=== PATIENT | male | born 1985 | race Caucasian/White ===

== ENCOUNTER 2017-01-05 03:14 | Outpatient (CLI) | payer OTHER, MEDICARE | END 2017-01-05 03:15 | disposition critical access hospital (66) | DX: S99.921A Unspecified injury of right foot, initial encounter (principal); W22.03XA Walked into furniture, initial encounter; Y92.019 Unspecified place in single-family (private) house as the place of occurrence of the external cause | CPT/HCPCS: A0425; A0429 ==

== ENCOUNTER 2017-01-05 03:28 | Emergency (ER) | payer OTHER, MEDICARE ==
[2017-01-05] MEDS ORDERED: KETOROLAC 60 MG/2 ML VIAL IM STA (03:36)
[2017-01-05] MEDS ORDERED: HYDROmorphone 1 MG/ML SYRINGE IM STA (03:36)
[2017-01-05] MEDS ORDERED: KETOROLAC 60 MG/2 ML VIAL ONE (03:41)
[2017-01-05] MEDS ORDERED: HYDROmorphone 1 MG/ML SYRINGE ONE (03:41)
== END 2017-01-05 04:26 | disposition home or self-care (01) ==
DX: S90.31XA Contusion of right foot, initial encounter (principal); W22.03XA Walked into furniture, initial encounter; Y92.019 Unspecified place in single-family (private) house as the place of occurrence of the external cause; F17.200 Nicotine dependence, unspecified, uncomplicated
CPT/HCPCS: 73610; 73630; 96372; 99283; 99284; J1170

== ENCOUNTER 2017-02-15 12:06 | Emergency (ER) | payer MEDICARE, MEDICAID ==
[2017-02-15] MEDS ORDERED: HYDROmorphone 1 MG/ML SYRINGE IVP STA ×2 (14:26→15:27)
[2017-02-15] MEDS ORDERED: SODIUM CHLORIDE 0.9% 1,000 ML IV ONE (14:26)
[2017-02-15] MEDS ORDERED: ONDANSETRON 4 MG/2 ML VIAL IVP STA (14:26)
[2017-02-15] MEDS ORDERED: PANTOPRAZOLE 40 MG VIAL IVP STA (14:27)
--- NOTE | 2017-02-15 14:41 | ED Physician Documentation ---
PD HPI ABD PAIN - Stated complaint Stated Complaint: VOMITING/DIZZY - Chief complaint Chief Complaint: Abd Pain - History obtained from History obtained from: Patient - History of Present Illness Timing - onset: Other (4 days of abdominal cramping that started low and is now in the epigastrium associated with vomiting and diarrhea but no fevers. His significant other has a similar syndrome but milder. No recent travel.) Review of Systems Ten Systems: 10 systems reviewed and negative Constitutional: denies: Fever, Chills GI: reports: Abdominal Pain, Nausea, Vomiting, Diarrhea. denies: Bloody / black stool Musculoskeletal: denies: Neck pain, Back pain Neurologic: reports: Headache (GRADUAL ONSET C/W PRIOR MIGRAINE) PD PAST MEDICAL HISTORY - Past Medical History Past Medical History: Yes Neuro: Headache/migraine Other Past Medical History: SUGGS, trigeminal neuralgia - Past Surgical History Past Surgical History: Yes - Present Medications Home Medications: Ambulatory Orders Medication Instructions Recorded Confirmed Naproxen [Naprosyn] 500 mg ORAL DAILY PRN 04/02/15 02/15/17 Sumatriptan Succinate 100 mg ORAL DAILY PRN 04/02/15 02/15/17 Naproxen Sodium/P-Ephed HCl 1 tab PO DAILY 03/06/16 02/15/17 [Aleve-D Sinus and Cold Caplet] Famotidine [Pepcid] 20 mg PO BID #30 tablet 02/15/17 Ondansetron HCl [Zofran] 4 mg PO Q6H PRN #10 tablet 02/15/17 Promethazine [Phenergan] 25 - 50 mg PO Q6H PRN #15 tab 02/15/17 oxyCODONE [Roxicodone] 5 mg PO Q4-6H PRN #10 tablet 02/15/17 - Allergies Allergies/Adverse Reactions: Allergies Allergy/AdvReac Type Severity Reaction Status Date / Time acetaminophen [From Tylenol] AdvReac Headache Verified 02/15/17 12:20 Penicillins AdvReac Nausea Verified 02/15/17 12:20 - Social History Does the pt smoke?: Yes Smoking Status: Current some day smoker Does the pt drink ETOH?: No Does the pt have substance abuse?: No - Immunizations Immunizations are current?: Yes - POLST Patient has POLST: No PD ED PE NORMAL - Vitals Vital signs reviewed: Yes - General General: Alert and oriented X 3, No acute distress - HEENT HEENT: Pharynx benign - Cardiac Cardiac: RRR, No murmur - Respiratory Respiratory: No respiratory distress, Clear bilaterally - Abdomen Abdomen: Soft, Non tender - Neuro Neuro: Alert and oriented X 3, Normal speech - Psych Psych: Normal mood, Normal affect Results - Vitals Vitals: Vital Signs - 24 hr 02/15/17 02/15/17 02/15/17 12:15 15:03 16:43 Temperature 36.2 C L 36.3 C L Heart Rate 100 88 84 Respiratory 16 20 18 Rate Blood Pressure 123/81 H 106/72 110/70 O2 Saturation 99 99 99 Oxygen O2 Source Room air - Labs Labs: Laboratory Tests 02/15/17 02/15/17 14:46 14:46 WBC 17.7 H RBC 5.55 Hgb 16.9 Hct 49.3 MCV 88.7 MCH 30.4 MCHC 34.3 RDW 12.8 Plt Count 339 MPV 8.6 Neut # 13.7 H Lymph # 3.1 [place] # 0.8 Eos # 0.0 Baso # 0.1 Absolute Nucleated RBC 0.00 Nucleated RBCs 0.0 Sodium 140 Potassium 3.4 L Chloride 105 Carbon Dioxide 22 Anion Gap 13.0 BUN 15 Creatinine 0.9 Estimated GFR (MDRD) 100 Glucose 99 Calcium 10.6 H Total Bilirubin 0.6 AST 22 ALT 32 Alkaline Phosphatase 77 Total Protein 8.9 H Albumin 5.5 Globulin 3.4 Albumin/Globulin Ratio 1.6 Lipase 24 PD MEDICAL DECISION MAKING - ED course ED course: 31-year-old gentleman with a clinical syndrome it sounds like gastroenteritis, probably complicated by narcotic withdrawal, he takes oxycodone 4 times a day and hasn't been able to keep it down since the start of the illness. There is no abdominal tenderness/no right lower quadrant tenderness to be suggestive of appendicitis either on initial evaluation on repeat evaluation. Passed PO challenge without issue. Departure - Departure Disposition: 01 Home, Self Care Clinical Impression: Gastroenteritis Condition: Good Record reviewed to determine appropriate education?: Yes Instructions: ED Gastroenteritis Viral Prescriptions: Famotidine [Pepcid] 20 mg PO BID #30 tablet Promethazine [Phenergan] 25 - 50 mg PO Q6H PRN #15 tab PRN Reason: Nausea / Vomiting oxyCODONE [Roxicodone] 5 mg PO Q4-6H PRN #10 tablet PRN Reason: Pain Ondansetron HCl [Zofran] 4 mg PO Q6H PRN #10 tablet PRN Reason: Nausea / Vomiting Comments: Return if worse or if new symptoms develop, especially fever or if pain moves to the bottom of the abdomen again, or if not better in the next 12-24 hours. Discharge Date/Time: 02/15/17 16:44
[2017-02-15] MEDS ORDERED: ONDANSETRON 4 MG/2 ML VIAL ONE (14:49)
[2017-02-15] MEDS ORDERED: PANTOPRAZOLE 40 MG VIAL ONE (14:49)
[2017-02-15] MEDS ORDERED: HYDROmorphone 1 MG/ML SYRINGE ONE ×2 (14:49→15:28)
[2017-02-15 14:58] LABS: BASOPHILS # (AUTO) 0.1 10^3/uL (0.0-0.1); BASOPHILS % (AUTO) 0.6 %; EOSINOPHILS % (AUTO) 0.2 %; HCT - HEMATOCRIT 49.3 % (42.0-52.0); HGB - HEMOGLOBIN 16.9 g/dL (14.0-18.0); LYMPHOCYTES # (AUTO) 3.1 10^3/uL (1.5-3.5); LYMPHOCYTES % (AUTO) 17.5 %; MEAN CORPUSCULAR HEMOGLOBIN 30.4 pg (27.0-31.0); MEAN CORPUSCULAR HGB CONC 34.3 g/dL (32.0-36.0); MEAN CORPUSCULAR VOLUME 88.7 fL (80.0-94.0); MEAN PLATELET VOLUME 8.6 fL (7.4-11.4); MONOCYTES # (AUTO) 0.8 10^3/uL (0.0-1.0); MONOCYTES % (AUTO) 4.7 %; NEUTROPHILS # (AUTO) 13.7 10^3/uL (1.5-6.6); RED BLOOD COUNT 5.55 10^6/uL (4.70-6.10); RED CELL DISTRIBUTION WIDTH 12.8 % (12.0-15.0); UNCORRECTED WHITE BLOOD COUNT 17.7 x10^3/uL; WHITE BLOOD COUNT 17.7 x10^3/uL (4.8-10.8)
[2017-02-15 15:05] LABS: ALBUMIN/GLOBULIN RATIO 1.6 (1.0-2.2); BILIRUBIN,TOTAL 0.6 mg/dL (0.2-1.0); CALCIUM 10.6 mg/dL (8.5-10.3); CREATININE 0.9 mg/dL (0.6-1.2); POTASSIUM 3.4 mmol/L (3.5-5.0); TOTAL PROTEIN 8.9 g/dL (6.7-8.2)
[2017-02-15 16:44] VITALS: BP 110/70
== END 2017-02-15 16:44 | disposition home or self-care (01) ==
LOC: ED 12:06
DX: K52.9 Noninfective gastroenteritis and colitis, unspecified (principal); F17.200 Nicotine dependence, unspecified, uncomplicated
CPT/HCPCS: 36415; 80053; 83690; 85025; 96374; 96375; 99283; 99284; J1170

== ENCOUNTER 2017-06-05 18:21 | Outpatient (CLI) | payer MEDICARE | END 2017-06-05 18:22 | disposition critical access hospital (66) | LOC: EMS 18:21 | PROVIDERS: ATTEND Surgery | DX: R10.9 Unspecified abdominal pain (principal); R53.1 Weakness; R11.2 Nausea with vomiting, unspecified | CPT/HCPCS: A0425; A0429 ==

== ENCOUNTER 2017-06-05 18:41 | Emergency (ER) | payer MEDICARE ==
[2017-06-05] MEDS ORDERED: SODIUM CHLORIDE 0.9% 1,000 ML IV ONE ×2 (18:56)
[2017-06-05 19:12] LABS: BASOPHILS # (AUTO) 0.2 10^3/uL (0.0-0.1); BASOPHILS % (AUTO) 1.1 %; EOSINOPHILS # (AUTO) 0.3 10^3/uL (0.0-0.7); HCT - HEMATOCRIT 47.5 % (42.0-52.0); HGB - HEMOGLOBIN 16.2 g/dL (14.0-18.0); LYMPHOCYTES # (AUTO) 4.5 10^3/uL (1.5-3.5); LYMPHOCYTES % (AUTO) 32.3 %; MEAN CORPUSCULAR HEMOGLOBIN 30.5 pg (27.0-31.0); MEAN CORPUSCULAR HGB CONC 34.2 g/dL (32.0-36.0); MEAN CORPUSCULAR VOLUME 89.1 fL (80.0-94.0); MEAN PLATELET VOLUME 7.8 fL (7.4-11.4); MONOCYTES # (AUTO) 0.8 10^3/uL (0.0-1.0); NEUTROPHILS # (AUTO) 8.2 10^3/uL (1.5-6.6); NEUTROPHILS % (AUTO) 58.6 %; NUCLEATED RED BLOOD CELLS AUTO 0.1 /100WBC; RED BLOOD COUNT 5.32 10^6/uL (4.70-6.10); RED CELL DISTRIBUTION WIDTH 12.7 % (12.0-15.0)
[2017-06-05 19:25] LABS: ALBUMIN/GLOBULIN RATIO 1.4 (1.0-2.2); BILIRUBIN,TOTAL 0.5 mg/dL (0.2-1.0); CALCIUM 9.8 mg/dL (8.5-10.3); CREATININE 0.7 mg/dL (0.6-1.2); POTASSIUM 3.2 mmol/L (3.5-5.0)
[2017-06-05] MEDS ORDERED: HYDROmorphone 1 MG/ML SYRINGE IVP STA (19:38)
[2017-06-05] MEDS ORDERED: ONDANSETRON 4 MG/2 ML VIAL IVP STA (19:38)
--- NOTE | 2017-06-05 19:42 | ED Physician Documentation ---
PD HPI ABD PAIN - Stated complaint Stated Complaint: ABD PX - Chief complaint Chief Complaint: Abd Pain - History obtained from History obtained from: Patient - History of Present Illness Timing - onset: How many days ago (4) Timing - duration: Days (4) Timing - details: Gradual onset Pain level max: 8 Pain level now: 8 Quality: Cramping, Aching Location: Epigastric, LUQ, LLQ Radiation: Other (Nonradiating) Improved by: Other (Nothing) Worsened by: Other ("Everything") Associated symptoms: Nausea, Vomiting, Diarrhea. No: Fever, Hematemesis, Constipation, Melena, Hematochezia Similar symptoms before: Diagnosis (States that this happens to him every few months. Since last for 3-4 days at a time. Has been unable to keep his medications down including his narcotics which he states he is nearly out of.) - Additional information Additional information: Patient also has a history of pots syndrome, states that from the vomiting he became lightheaded and dizzy today, passed out and struck his head on a car in his driveway. Has had no vomiting. Has been acting appropriately since the event. No seizure. Was seen by a neighbor. States has passed out several times in the past. Review of Systems Constitutional: denies: Fever, Chills Nose: denies: Rhinorrhea / runny nose, Congestion Skin: denies: Rash Musculoskeletal: denies: Neck pain, Back pain Neurologic: denies: Focal weakness, Numbness, Confused, Altered mental status PD PAST MEDICAL HISTORY - Past Medical History Past Medical History: Yes Neuro: Headache/migraine Other Past Medical History: positional orthostatic hypotension syndrome - Past Surgical History Past Surgical History: Yes - Present Medications Home Medications: Ambulatory Orders Medication Instructions Recorded Confirmed Naproxen [Naprosyn] 500 mg ORAL DAILY PRN 04/02/15 02/15/17 Sumatriptan Succinate 100 mg ORAL DAILY PRN 04/02/15 02/15/17 Naproxen Sodium/P-Ephed HCl 1 tab PO DAILY 03/06/16 02/15/17 [Aleve-D Sinus and Cold Caplet] Famotidine [Pepcid] 20 mg PO BID #30 tablet 02/15/17 Ondansetron HCl [Zofran] 4 mg PO Q6H PRN #10 tablet 02/15/17 oxyCODONE [Roxicodone] 5 mg PO Q4-6H PRN #10 tablet 02/15/17 Ondansetron Odt [Zofran] 4 mg TL Q6H PRN #10 tablet 06/05/17 oxyCODONE [Roxicodone] 5 mg PO Q4-6H PRN #10 tablet 06/05/17 - Allergies Allergies/Adverse Reactions: Allergies Allergy/AdvReac Type Severity Reaction Status Date / Time acetaminophen [From Tylenol] AdvReac Headache Verified 06/05/17 18:47 Penicillins AdvReac Nausea Verified 06/05/17 18:47 - Social History Does the pt smoke?: Yes Smoking Status: Current some day smoker Does the pt drink ETOH?: No Does the pt have substance abuse?: No - Immunizations Immunizations are current?: Yes - POLST Patient has POLST: No PD ED PE NORMAL - Vitals Vital signs reviewed: Yes - General General: Alert and oriented X 3, No acute distress, Well developed/nourished - HEENT HEENT: PERRL, Moist mucous membranes - Neck Neck: Supple, no meningeal sign - Cardiac Cardiac: RRR - Respiratory Respiratory: No respiratory distress, Clear bilaterally - Abdomen Abdomen: Soft, Non distended, Other (Mild diffuse tenderness without peritoneal signs) - Back Back: No spinal TTP - Derm Derm: Warm and dry, No rash - Extremities Extremities: No calf tenderness / cord - Neuro Neuro: Alert and oriented X 3 - Psych Psych: Normal mood, Normal affect Results - Vitals Vitals: Vital Signs - 24 hr 06/05/17 06/05/17 06/05/17 18:43 19:37 20:16 Temperature 37.4 C 36.8 C Heart Rate 104 H 95 85 Respiratory 16 18 14 Rate Blood Pressure 135/84 H 133/85 H 110/68 O2 Saturation 100 100 99 06/05/17 06/05/17 06/05/17 20:55 21:52 23:15 Temperature Heart Rate 77 79 82 Respiratory 17 20 15 Rate Blood Pressure 123/79 123/64 114/72 O2 Saturation 100 99 99 Oxygen O2 Source Room air - EKG (time done) 1924 Rate: Rate (enter#) (95) Rhythm: NSR [place]: Normal Intervals: Normal [place] QRS: Normal Ischemia: Normal ST segments - Labs Labs: Laboratory Tests 06/05/17 06/05/1717 19:06 19:06 22:32 WBC 14.0 H RBC 5.32 Hgb 16.2 Hct 47.5 MCV 89.1 MCH 30.5 MCHC 34.2 RDW 12.7 Plt Count 365 MPV 7.8 Neut # 8.2 H Lymph # 4.5 H [place] # 0.8 Eos # 0.3 Baso # 0.2 H Absolute Nucleated RBC 0.01 Nucleated RBCs 0.1 Sodium 139 Potassium 3.2 L Chloride 106 Carbon Dioxide 23 Anion Gap 10.0 BUN 12 Creatinine 0.7 Estimated GFR (MDRD) 132 Glucose 90 Calcium 9.8 Total Bilirubin 0.5 AST 28 ALT 19 Alkaline Phosphatase 89 Total Protein 8.0 Albumin 4.6 Globulin 3.4 Albumin/Globulin Ratio 1.4 Lipase 25 Urine Color YELLOW Urine Clarity CLEAR Urine pH 7.5 Ur Specific [place] 1.015 Urine Protein NEGATIVE Urine Glucose (UA) NEGATIVE Urine Ketones NEGATIVE Urine Occult Blood NEGATIVE Urine Nitrite NEGATIVE Urine Bilirubin NEGATIVE Urine Urobilinogen 0.2 (NORMAL) Ur Leukocyte Esterase NEGATIVE Ur Microscopic Review NOT INDICATED Urine Culture Comments NOT INDICATED PD MEDICAL DECISION MAKING - ED course Complexity details: reviewed old records, reviewed results, re-evaluated patient , considered differential, d/w patient ED course: Patient is a 32-year-old male with vomiting and diarrhea, unable to keep his pain medications down likely a component of narcotic withdrawal. Symptoms resolved with Zofran and Dilaudid, but then developed his typical migraine headache. This resolved after Toradol, Benadryl and Compazine IV. Tolerating p.o. without difficulty in the emergency department. Will prescribe a small amount of pain medication for home so he can contact his doctor to discuss an early refill of his narcotic pain medication. Reviewed his [employer] and he feels reliably from 1 prescriber, does not routinely go to emergency department. Patient is well-appearing, nontoxic. Afebrile. Abdomen is soft, nontender nondistended on serial exam. Patient counseled regarding signs and symptoms for which I believe and urgent re-evaluation would be necessary. Patient with good understanding of and agreement to plan and is comfortable going home at this time This document was made in part using voice recognition software. While efforts are made to proofread this document, sound alike and grammatical errors may occur. Departure - Departure Disposition: 01 Home, Self Care Clinical Impression: Gastroenteritis Migraine Qualifiers: Migraine type: unspecified Status migrainosus presence: without status migrainosus Intractability: not intractable Qualified Code(s): G43.909 - Migraine, unspecified, not intractable, without status migrainosus Condition: Good Instructions: ED Gastroenteritis Viral Follow-Up: ANNY MARTIN MD [Primary Care Provider] - Within 1 week Prescriptions: oxyCODONE [Roxicodone] 5 mg PO Q4-6H PRN #10 tablet PRN Reason: Abdominal Pain Ondansetron Odt [Zofran] 4 mg TL Q6H PRN #10 tablet PRN Reason: Nausea / Vomiting Comments: Rest. Return if you worsen. Do not drink alcohol or drive while on narcotic pain medicine. Note that many narcotic pain relievers also contain tylenol/acetaminophen. Please ensure that your total dose of acetaminophen from all sources does not exceed 3 grams (3000mg) per day. You may constipated on this medication, take a stool softener such as "Colace" twice a day while you are on it. Also recommend a [id number] laxative such as senna or MiraLAX any day that you do not have a bowel movement. If you received narcotic pain medication in the emergency department, do not drive or operate machinery for the next 24 hours. Discharge Date/Time: 06/05/17 23:23
[2017-06-05] MEDS ORDERED: ONDANSETRON 4 MG/2 ML VIAL ONE (19:49)
[2017-06-05] MEDS ORDERED: HYDROmorphone 1 MG/ML SYRINGE ONE (19:49)
[2017-06-05] MEDS ORDERED: KETOROLAC 60 MG/2 ML VIAL IVP STA (20:46)
[2017-06-05] MEDS ORDERED: PROCHLORPERAZINE 10 MG/2 ML VIAL IVP STA (20:47)
[2017-06-05] MEDS ORDERED: diphenhydrAMINE INJ 50 MG/ML VIAL IVP STA (20:47)
[2017-06-05] MEDS ORDERED: diphenhydrAMINE INJ 50 MG/ML VIAL ONE (20:57)
[2017-06-05] MEDS ORDERED: PROCHLORPERAZINE 10 MG/2 ML VIAL ONE (20:57)
[2017-06-05] MEDS ORDERED: KETOROLAC 30 MG/ML VIAL ONE (20:57)
[2017-06-05 22:39] LABS: BILIRUBIN,URINE NEGATIVE (NEGATIVE); PH,URINE 7.5 PH (5.0-7.5)
[2017-06-05 22:40] LABS: UA CHARGE (STRIP ONLY) YES; UR CULTURE IF IND NOT INDICATED
[2017-06-05 23:17] VITALS: BP 114/72
[2017-06-05] MEDS ORDERED: oxyCODONE 5 MG TABLET PO STA (23:18)
[2017-06-05] MEDS ORDERED: oxyCODONE 5 MG TABLET ONE (23:24)
== END 2017-06-05 23:23 | disposition home or self-care (01) ==
LOC: EDUNIT# → ED 18:41
DX: K52.9 Noninfective gastroenteritis and colitis, unspecified (principal); G43.909 Migraine, unspecified, not intractable, without status migrainosus; R55 Syncope and collapse; F17.200 Nicotine dependence, unspecified, uncomplicated
CPT/HCPCS: 36415; 80053; 81003; 83690; 85025; 93005; 96361; 96374; 96375; 99284; A9270; J1170; 81001; 87086